=== PATIENT | female | born 1965 | race Caucasian/White ===

== ENCOUNTER 2025-06-16 07:50 | Day surgery (SDC) | payer BC ==
[2025-06-16 08:27] VITALS: BP 146/75; TEMP 97.3
[2025-06-16] MEDS ORDERED: Sodium Bicarbonate 2.5 MEQ/5 ML SDV ONE (08:32)
== END 2025-06-16 09:00 | disposition home or self-care (01) ==
LOC: CSHULT 07:50
PROVIDERS: ATTEND Family Medicine
PROC: 0G9H3ZX Drainage of Right Thyroid Gland Lobe, Percutaneous Approach, Diagnostic (ICD-10-PCS; principal; 2025-06-16)
DX: E04.1 Nontoxic single thyroid nodule (principal)
CPT/HCPCS: 10005; 88173